=== PATIENT | female | born 1990 | race Caucasian/White ===

== ENCOUNTER 2019-10-23 19:16 | Emergency (ER) | payer OTHER ==
--- NOTE | 2019-10-23 19:52 | ED.PDOC ---
History of Present Illness - General Chief Complaint: Abdominal Pain Stated Complaint: pain and lump to right side of abd Time Seen by Provider: 10/23/19 19:48 Information Source: patient, family Exam Limitations: no limitations - History of Present Illness Initial Comments: H/O GASTRIC SLEEVE. 2D H/O MILD PAIN AND PALPABLE MASS RUQ/RIGHT EPIGASTRIC. ALSO ABSENT FLATUS TODAY, SLIGHT INCR BURPING TODAY, AND NO BM X2D. Abdominal Pain Onset Location: RUQ Pain Radiation: no radiation Quality: moderate Improving Factors: nothing Worsening Factors: nothing Associated Symptoms: denies symptoms Review of Systems - Review of Systems Constitutional: States: no symptoms reported EENTM: States: no symptoms reported Respiratory: States: no symptoms reported Cardiology: States: no symptoms reported Gastrointestinal/Abdominal: States: abdominal pain, constipation. Denies: diarrhea, nausea, vomiting Genitourinary: States: no symptoms reported Musculoskeletal: States: no symptoms reported Skin: States: no symptoms reported Neurological: States: no symptoms reported Endocrine: States: no symptoms reported Hematologic/Lymphatic: States: no symptoms reported All other Systems: Reviewed and Negative Past Medical History (General) - Patient Medical History Hx MRSA: Yes - Abdomen 2008 MRSA Source:: Wound Family Medical History - Family History Father Living Status: Cause of : cardiac arrest Hx Family Asthma: No Physical Exam - Physical Exam General Appearance: Alert, No apparent distress Eyes, Ears, Nose, Throat Exam: PERRL/EOMI, normal ENT inspection Neck: full range of motion, normal inspection Respiratory: lungs clear, normal breath sounds Cardiovascular/Chest: normal peripheral pulses, regular rate, rhythm Peripheral Pulses: No deficit Gastrointestinal/Abdominal: normal bowel sounds, non tender, soft, no organomegaly, no pulsatile mass, other - PT STATES MORE NOTICABLE WHEN STANDING, THUS WITH NURSE'S ASSISTANCE I PALPATED SUPINE AND STANDING AND DID NOT PALPATE A HERNIA. PT STATES FOCALLY TTP RUQ. Back Exam: normal inspection, no CVA tenderness Extremity: normal inspection, no pedal edema Neurologic: alert, normal mood/affect Skin Exam: normal color, warm/dry Lymphatic: no adenopathy Progress - Results/Orders Results/Orders: PT'S SX OF NO BM X3D, ABSENCE OF FLATUS TODAY, INCREASE IN ERUDICTATION TODAY, AND H/O GASTRIC SLEEVE MADE ME CONCERNED FOR SMALL BOWEL OBSTRUCTION. CT AND CMP NEG FOR SBO, HERNIA, OR OTHER PATHOLOGY. WATCHFUL WAITING. Departure - Departure Clinical Impression: Unable to pass flatus, Eructation Abdominal pain Qualifiers: Abdominal location: right upper quadrant Qualified Code(s): R10.11 - Right upper quadrant pain Constipated Qualifiers: Constipation type: unspecified constipation type Qualified Code(s): K59.00 - Constipation, unspecified Disposition: Discharge to Home or Self Care Condition: Excellent Departure Forms: ED Discharge - Pt. Copy, Patient Portal Self Enrollment Instructions: DI for Abdominal Pain-Adult Diet: resume usual diet Activity: increase activity as tolerated Additional Instructions: You do not have a bowel obstruction or hernia. The CT and labs were normal and reassuring. Please see your regular doctor if the symptoms do not improve with more time or return to the ER if anything changes or worsens.
--- NOTE | 2019-10-23 21:00 | CT ---
EXAM: CT Abdomen and Pelvis With Intravenous Contrast CLINICAL HISTORY: ABD PAIN PALPABLE MASS; S/P GASTRIC SLEEVE. TECHNIQUE: Axial computed tomography images of the abdomen and pelvis with intravenous contrast. Sagittal and coronal reformatted images were created and reviewed. This CT exam was performed using one or more of the following dose reduction techniques: automated exposure control, adjustment of the mA and/or kV according to patient size, and/or use of iterative reconstruction technique. COMPARISON: No relevant prior studies available. FINDINGS: Lung bases: Unremarkable. No mass. No consolidation. ABDOMEN: Liver: Unremarkable. No mass. Gallbladder and bile ducts: Cholecystectomy. No ductal dilation. Pancreas: Unremarkable. No mass. No ductal dilation. Spleen: Unremarkable. No splenomegaly. Adrenals: Unremarkable. No mass. Kidneys and ureters: There is a 7 mm diameter cyst in the inferior left kidney. No further evaluation needed. The right appears normal. No hydronephrosis. Stomach and bowel: Gastric bypass changes noted. Diverticulosis. No diverticulitis or intestinal obstruction. PELVIS: Appendix: No findings to suggest acute appendicitis. Bladder: Unremarkable. No mass. Reproductive: Unremarkable as visualized. ABDOMEN and PELVIS: Intraperitoneal space: Unremarkable. No free air. No significant fluid collection. Bones/joints: No acute fracture. No dislocation. Soft tissues: No soft tissue mass identified. Vasculature: Unremarkable. No abdominal aortic aneurysm. Lymph nodes: Unremarkable. No enlarged lymph nodes. IMPRESSION: No acute findings in the abdomen or pelvis. Electronically signed by: Samantha Dotson MD 10/23/2019 8:58 PM DOG SITTER
[2019-10-23 21:47] VITALS: BP 114/79; TEMP 98.4; O2SAT 100
== END 2019-10-23 21:47 | disposition home or self-care (01) ==
LOC: ER 19:16
DX: R10.11 Right upper quadrant pain (principal); K59.00 Constipation, unspecified; R14.2 Eructation; Z98.84 Bariatric surgery status